=== PATIENT | male | born 1930 | race Hispanic/Latino ===

== ENCOUNTER 2019-07-02 18:34 | Emergency (ER) | payer MEDICARE ==
[~2019-07-02] VITALS: Ht 177.8 cm; Wt 83.9 kg
[2019-07-02 19:36] LABS: BASOPHILS # (AUTO) 0.1 (0.0-0.1); BASOPHILS % 0.7 % (0.0-1.0); EOSINOPHILS # (AUTO) 0.2 (0.0-0.4); EOSINOPHILS % 1.7 % (0.0-6.0); HEMATOCRIT 40.7 % (38.2-49.6); HEMOGLOBIN 13.1 g/dL (14.0-18.0); LYMPHOCYTES # (AUTO) 1.8 (1.0-3.2); LYMPHOCYTES % 19.6 % (18.0-39.1); MEAN CORPUSCULAR HEMOGLOBIN 29.6 pg (28-32); MEAN CORPUSCULAR HGB CONC 32.2 g/dL (31-35); MEAN CORPUSCULAR VOLUME 91.9 fL (81-99); MONOCYTES # (AUTO) 0.7 (0.2-0.8); MONOCYTES % 7.4 % (4.4-11.3); NEUTROPHILS # (AUTO) 6.4 (2.1-6.9); NEUTROPHILS % 69.9 % (38.7-80.0); PLATELET COUNT 301 x10e3/uL (140-360); RED BLOOD COUNT 4.43 x10e6/uL (4.3-5.7)
[2019-07-02 19:54] LABS: ALBUMIN 3.7 g/dL (3.5-5.0); ALBUMIN/GLOBULIN RATIO 1.1 (0.8-2.0); CALCIUM 9.2 mg/dL (8.4-10.2); CREATININE, SERUM 1.3 mg/dL (0.72-1.25)
[2019-07-02 20:00] LABS: CREATINE KINASE MB 1.3 ng/mL (0-5.0)
[2019-07-02 20:08] LABS: B-TYPE NATRIURETIC PEPTIDE2 54.8 pg/mL (0-100)
--- NOTE | 2019-07-02 20:08 | Diagnostic Imaging Report ---
EXAMINATION: PA and lateral views of the chest. COMPARISON: None CLINICAL HISTORY: Pneumonia DISCUSSION: Lines/tubes: None. Lungs: Lungs are well-inflated. Patchy opacity likely located in the lingula, which likely represents atelectasis. No definite consolidation. Pleura: There is no pleural effusion or pneumothorax. Heart and mediastinum: Cardiomediastinal silhouette is unremarkable. Prominence of the right hilum, which may reflect enlarged pulmonary artery. Bones and soft tissues: No acute bony abnormalities. Degenerative changes in the thoracic spine IMPRESSION: Likely lingular atelectasis. Pneumonia is a consideration, in the appropriate clinical setting. Signed by: Dr. Walter White M.D. on 07/02/2019 8:05 PM
[2019-07-02 22:50] VITALS: BP 160/72
== END 2019-07-02 22:59 | disposition home or self-care (01) ==
LOC: ER 18:34
DX: R05 Cough (principal); J01.00 Acute maxillary sinusitis, unspecified; J06.9 Acute upper respiratory infection, unspecified
CPT/HCPCS: 36415; 71046; 80053; 82550; 82553; 83605; 83880; 84484; 85025; 87040; 87400; 93005; 99284